=== PATIENT | female | born 1975 | race Caucasian/White ===

== ENCOUNTER → 2016-12-14 | Outpatient (CLI) | payer MEDICARE ==
[2016-12-14 14:32] LABS: INR 1.9 (<1.1); Prothrombin Time 18.6 sec (9.0-12.0)
[2016-12-14 14:41] LABS: CH 34.7; CHCM 30.9; HDW 2.16; HGB 12.2 gm/dL (11.4-16.0); Hypochromasia Slight; MCH 35.1 pg (25.0-35.0); MCHC 31.2 g/dL (31.0-37.0); Macrocytosis Marked; Mean Platelet Volume 7.6; RBC 3.46 m/uL (3.80-5.40); RDW 15.5 % (11.5-15.5); WBC 3.6 k/uL (3.8-10.6); WBC (Perox) 3.74
[2016-12-14 14:43] LABS: ALT 21 U/L (9-52); AST 77 U/L (14-36); Alkaline Phosphatase 191 U/L (38-126); Anion Gap 8 mmol/L; Blood Urea Nitrogen 3 mg/dL (7-17); Calcium 7.8 mg/dL (8.4-10.2); Carbon Dioxide 26 mmol/L (22-30); Chloride 104 mmol/L (98-107); Glucose 89 mg/dL (74-99); MCV 112.6 fL (80.0-100.0); Non-African American GFR(MDRD) >60 (>60 ml/min/1.73 sqM); Sodium 138 mmol/L (137-145); Total Bilirubin 5.2 mg/dL (0.2-1.3); Total Protein 6.7 g/dL (6.3-8.2)
[2016-12-14 15:11] LABS: Add Differential Manual Differential
[2016-12-14 15:33] LABS: Nucleated Red Blood Cells 0 /100 WBC (0-0); Total Cells Counted 100
== END | disposition home or self-care (01) ==
LOC: LABWHC1 13:38
PROVIDERS: ATTEND Internal Medicine Gastroenterology
DX: F10.988 Alcohol use, unspecified with other alcohol-induced disorder (principal)
CPT/HCPCS: 36415; 80053; 85025; 85610

== ENCOUNTER 2017-01-01 13:28 | Inpatient (IN) | payer MEDICARE ==
[2017-01-01] MEDS ORDERED: SODIUM CHLORIDE 0.9% 500 ML IV STA (14:03)
[2017-01-01] MEDS ORDERED: SODIUM CHLORIDE 0.9% 1,000 ML IV STA (14:03)
--- NOTE | 2017-01-01 14:11 | ED ---
General Adult HPI - General Chief complaint: Abdominal Pain Stated complaint: abdominal pain Time Seen by Provider: 01/01/17 13:50 Source: patient, family Mode of arrival: ambulatory - History of Present Illness Initial comments: Chief complaint and history of present illness a 41-year-old female here with liver disease from alcohol abuse. The patient quit smoking and drinking 2 months ago. She's had mild ascites but she feels the last 2 days sitting Jay significantly. She reports a 10 pound weight gain with significant increase in abdominal swelling. - Related Data Home Medications Medication Instructions Recorded Confirmed Furosemide [Lasix] 20 mg PO DAILY 01/01/17 01/01/17 Ibuprofen [Advil] 400 mg PO Q8HR PRN 01/01/17 01/01/17 Pantoprazole Sodium 20 mg PO BID 01/01/17 01/01/17 Spironolactone 50 mg PO DAILY 01/01/17 01/01/17 levETIRAcetam [Keppra] 1,000 mg PO BID 01/01/17 01/01/17 Allergies Allergy/AdvReac Type Severity Reaction Status Date / Time No Known Allergies Allergy Verified 01/01/17 13:58 Review of Systems ROS Statement: Those systems with pertinent positive or pertinent negative responses have been documented in the HPI. Review of systems. No complaint of any headache or visual acuity changes no chest pain or shortness of breath. She states her abdomen feels "bloated. Denying any nausea vomiting, she has had one episode of diarrhea. Patient reports she was taking diuretics which helped significantly decreased the leg swelling but has not altered her abdominal swelling. All systems reviewed. Past medical problems significant for seizure disorder associated with head injury. She's also had acute liver failure. Several days ago she had some chills and fever but none today. Patient did not get a flu shot this year. Patient currently taking Keppra for her seizures with good control. The patient 's past tablets include alcohol use which led to her liver failure. The patient 's surgeries as noted above includes craniotomy. She denies any other surgeries. The patient's family history significant for an uncle with leukemia. His sister of melanoma. Great-grandmother had colon cancer. Patient quit smoking drinking 2 months ago. She denying any ALLERGIES. ROS Other: All systems not noted in ROS Statement are negative. Past Medical History Past Medical History: Seizure Disorder Additional Past Medical History / Comment(s): alcoholic cirrosis, closed head injury History of Any Multi-Drug Resistant Organisms: None Reported Additional Past Surgical History / Comment(s): craniotomy Past Psychological History: No Psychological Hx Reported Smoking Status: Former smoker Past Alcohol Use History: None Reported Past Drug Use History: None Reported General Exam - General Exam Comments Initial Comments: General: The patient is awake and alert, complaining that her abdomen is more swollen than it had been over the last several days. States she's had a 10 pound weight gain over the last several days. Temp 97 7, pulse 122, respiratory rate 18, pulse ox 99% room air blood pressure 102/58. Appears though the patient probably third spacing she will receive some IV fluids. Eye: Pupils are equal, round and reactive to light, extra-ocular movements are intact ; there is normal conjunctiva bilaterally. No signs of icterus. Ears, nose, mouth and throat: There are moist mucous membranes and no oral lesions. always has a reddish rash over her cheeks. Mother reports a slightly more pronounced today. Neck: The neck is supple, there is no tenderness. Cardiovascular: Tachycardic heart rate, 122. No murmur, rub or gallop is appreciated. Respiratory: Lungs are clear to auscultation, respirations are non-labored, breath sounds are equal. No wheezes, stridor, rales, or rhonchi. Gastrointestinal: Soft, mildly distended, mildly tender with palpation. abdomen without masses or organomegaly noted. There is no rebound or guarding present. No CVA tenderness. Bowel sounds are unremarkable. Positive wave sign. Back: No complaint of back pain. Musculoskeletal: Normal ROM, no tenderness, mild edema peripherally but significantly improved since taking diuretics.. There is no calf tenderness . Sensation intact. Pulses equal bilaterally 2+. Neurological: No neuro deficits complained of no noted. Skin: No significant bruising noted. Course Vital Signs 01/01/17 01/01/17 13:35 15:53 Temperature 97.7 F Pulse Rate 122 H 102 H Respiratory 18 20 Rate Blood Pressure 102/58 98/63 O2 Sat by Pulse 99 99 Oximetry Medical Decision Making - Medical Decision Making Medical decision making white count is 5.7 hemoglobin 12 hematocrit 39, potassium 4.0 with a BUN 4 creatinine 0.5 and GFR greater than 60. Patient's total bilirubin elevated 3.8 AST is 52. Amylase and lipase within normal limits. Patient's PT is elevated at 24.7 INR 2.6 and PTT 32.8. Platelets 107. X-ray of the abdomen was done and reviewed by radiologist his findings are the following. There is some possibility of bowel gas. Visualized gases noted in nondistended bowel small and large bowel loops. All G no flanks is consistent with underlying ascites. There are small bilateral pleural effusions. There is associated compressive atelectasis. There is mild joint space loss in both hips. No pneumoperitoneum is present. Spleen is suspected enlarged. Impression; overall a nonspecific suspect nonobstructive bowel gas pattern. Ascites and small bilateral pleural effusions noted. As read by Dr. yeh The case discussed Dr. Cooper, on-call food assembler kitchen. He recommends admission to the hospitalist with further workup and evaluation for possible CT or ultrasound-guided paracentesis by radiologist, interventional list. - Lab Data Result diagrams: 01/01/17 14:16 01/01/17 14:16 Lab Results 01/01/17 01/01/17 01/01/17 Range/Units 14:16 14:16 14:16 WBC 5.7 (3.8-10.6) k/uL RBC 3.63 L (3.80-5.40) m/uL Hgb 12.7 (11.4-16.0) gm/dL Hct 39.1 (34.0-46.0) % MCV 107.7 H D (80.0-100.0) fL MCH 34.9 (25.0-35.0) pg MCHC 32.4 (31.0-37.0) g/dL RDW 14.3 (11.5-15.5) % Plt Count 107 L (150-450) k/uL Neutrophils % 79 % Lymphocytes % 14 % Monocytes % 5 % Eosinophils % 0 % Basophils % 0 % Neutrophils # 4.6 (1.3-7.7) k/uL Lymphocytes # 0.8 L (1.0-4.8) k/uL Monocytes # 0.3 (0-1.0) k/uL Eosinophils # 0.0 (0-0.7) k/uL Basophils # 0.0 (0-0.2) k/uL Manual Slide Review Performed Toxic Granulation Present Macrocytosis Moderate PT 24.7 H (9.0-12.0) sec INR 2.6 (<1.1) APTT 32.8 H (22.0-30.0) sec Sodium 136 L (137-145) mmol/L Potassium 4.0 (3.5-5.1) mmol/L Chloride 107 (98-107) mmol/L Carbon Dioxide 21 L (22-30) mmol/L Anion Gap 8 mmol/L BUN 4 L (7-17) mg/dL Creatinine 0.50 L (0.52-1.04) mg/dL Est GFR (MDRD) Af Amer >60 (>60 ml/min/1.73 sqM) Est GFR (MDRD) Non-Af >60 (>60 ml/min/1.73 sqM) Glucose 76 (74-99) mg/dL Calcium 7.8 L (8.4-10.2) mg/dL Total Bilirubin 3.8 H (0.2-1.3) mg/dL AST 52 H (14-36) U/L ALT 26 (9-52) U/L Alkaline Phosphatase 113 (38-126) U/L Total Protein 6.6 (6.3-8.2) g/dL Albumin 2.1 L (3.5-5.0) g/dL Amylase <30 L (30-110) U/L Lipase 21 L (23-300) U/L Disposition Clinical Impression: Alcoholic cirrhosis of liver with ascites Disposition: ADMITTED IP TO THIS [facility] Condition: Stable
[2017-01-01 14:41] LABS: Amylase <30 U/L (30-110); Anion Gap 8 mmol/L; Calcium 7.8 mg/dL (8.4-10.2); Carbon Dioxide 21 mmol/L (22-30); Chloride 107 mmol/L (98-107); Glucose 76 mg/dL (74-99); Non-African American GFR(MDRD) >60 (>60 ml/min/1.73 sqM); Sodium 136 mmol/L (137-145); Total Bilirubin 3.8 mg/dL (0.2-1.3)
[2017-01-01 14:45] LABS: ALT 26 U/L (9-52); AST 52 U/L (14-36); Alkaline Phosphatase 113 U/L (38-126); Blood Urea Nitrogen 4 mg/dL (7-17); Total Protein 6.6 g/dL (6.3-8.2)
--- NOTE | 2017-01-01 14:48 | XR ---
EXAMINATION TYPE: XR abdomen 2V DATE OF EXAM: 01/01/2017 2:33 PM CLINICAL HISTORY: Abdominal pain and bloating/ascites TECHNIQUE: Supine and upright views of the abdomen are obtained. COMPARISON: None. FINDINGS: There is some paucity of bowel gas. Visualized gas is noted in nondistended small and larg e bowel loops. Bulging of flanks is consistent with underlying ascites. There are small bilateral ple ural effusions. There is associated compressive atelectasis. There is mild joint space loss in both h ips. No pneumoperitoneum is present. Spleen is suspected enlarged. IMPRESSION: Overall nonspecific suspect nonobstructive bowel gas pattern. Ascites and small bilatera l pleural effusions noted.
[2017-01-01 14:51] LABS: Basophils % (A) 0 %; CH 35.1; CHCM 32.7; Eosinophils % (A) 0 %; HCT 39.1 % (34.0-46.0); HGB 12.7 gm/dL (11.4-16.0); Luc # (Auto) 0.08; Luc % (Auto) 2; Lymphocytes # (A) 0.8 k/uL (1.0-4.8); Lymphocytes % (A) 14 %; MCH 34.9 pg (25.0-35.0); MCHC 32.4 g/dL (31.0-37.0); Macrocytosis Moderate; Mean Platelet Volume 8.5; Monocytes # (A) 0.3 k/uL (0-1.0); Monocytes % (A) 5 %; Neutrophils # (A) 4.6 k/uL (1.3-7.7); Neutrophils % (A) 79 %; RBC 3.63 m/uL (3.80-5.40); RDW 14.3 % (11.5-15.5); WBC 5.7 k/uL (3.8-10.6); WBC (Perox) 6.03
[2017-01-01 14:58] LABS: MCV 107.7 fL (80.0-100.0)
[2017-01-01 15:01] LABS: INR 2.6 (<1.1); Partial Thromboplastin Time 32.8 sec (22.0-30.0); Prothrombin Time 24.7 sec (9.0-12.0)
[2017-01-01 15:20] LABS: Manual Review Performed; Toxic Granulation Present
[2017-01-01] MEDS ORDERED: NALOXONE 0.4 MG/ML 1 ML VIAL IV PRN (16:16)
[2017-01-01] MEDS ORDERED: SODIUM CHLORIDE 0.9% 1,000 ML with MVI, ADULT NO.4 WITH VIT K 10 ML, THIAMINE 100 MG, F... IV ONE ×4 (16:16)
[2017-01-01 18:10] VITALS: BMI 27.1
[2017-01-01] MEDS: levETIRAcetam 500 MG TAB PO SCH (20:06)
[2017-01-01] MEDS: HYDROmorphone 1 MG/ML 1 ML SYRINGE IVP PRN (22:32)
[2017-01-02] MEDS: HYDROmorphone 1 MG/ML 1 ML SYRINGE IVP PRN ×4 (02:30→22:58)
[2017-01-02] MEDS: PANTOPRAZOLE 40 MG/10 ML VIAL IV SCH (08:34)
[2017-01-02] MEDS: levETIRAcetam 500 MG TAB PO SCH ×2 (08:34→20:33)
[2017-01-02] MEDS ORDERED: FUROSEMIDE 20 MG TAB PO SCH (09:00)
[2017-01-02] MEDS ORDERED: SPIRONOLACTONE 25 MG TAB PO SCH (09:00)
[2017-01-02 12:40] LABS: INR 2.3 (<1.1); Prothrombin Time 22.4 sec (9.0-12.0)
[2017-01-02 13:05] LABS: Basophils % (A) 1 %; CH 34.6; CHCM 31.8; Eosinophils % (A) 0 %; HCT 36.8 % (34.0-46.0); HDW 2.16; Luc # (Auto) 0.07; Luc % (Auto) 2; Lymphocytes # (A) 0.5 k/uL (1.0-4.8); Lymphocytes % (A) 12 %; MCH 35.7 pg (25.0-35.0); MCHC 32.6 g/dL (31.0-37.0); MCV 109.2 fL (80.0-100.0); Macrocytosis Marked; Mean Platelet Volume 9.1; Monocytes # (A) 0.4 k/uL (0-1.0); Monocytes % (A) 8 %; Neutrophils # (A) 3.6 k/uL (1.3-7.7); Neutrophils % (A) 78 %; RBC 3.37 m/uL (3.80-5.40); RDW 14.4 % (11.5-15.5); WBC 4.6 k/uL (3.8-10.6); WBC (Perox) 4.61
[2017-01-02 13:17] LABS: Manual Review Performed
[2017-01-02] MEDS: MULTIVITAMINS, THERA 1 EACH TAB PO SCH (13:34)
--- NOTE | 2017-01-02 14:43 | US ---
EXAMINATION TYPE: US abdomen limited DATE OF EXAM: 01/02/2017 12:55 PM COMPARISON: NONE CLINICAL HISTORY: abd distension r/o ascites. TECHNOLOGIST IMPRESSION: Moderate ascites Limited abdomen ultrasound performed. Ascites noted in all 4 quadrants. IMPRESSION: Moderate ascites, limited abdomen ultrasound
[2017-01-02] MEDS: PHYTONADIONE ORAL 5 MG/5 ML ORAL.SYRG PO SCH (14:51)
[2017-01-02] MEDS ORDERED: SPIRONOLACTONE 25 MG TAB PO ONE (16:30)
[2017-01-02] MEDS: traMADol 50 MG TAB PO PRN ×2 (17:41→22:58)
[2017-01-02] MEDS: FUROSEMIDE 40 MG TAB PO SCH (17:42)
--- NOTE | 2017-01-02 20:27 | HP ---
DATE OF ADMISSION: 01/01/2017 DATE OF SERVICE: 01/02/2017 CHIEF COMPLAINTS: Abdominal pain and ascites. HISTORY OF PRESENT ILLNESS: This 41-year-old woman with a past medical history of multiple medical problems, including history of seizure disorder, history of alcoholic cirrhosis, history of closed head injury, history of craniotomy, history of nicotine dependence, being followed by Dr. Newby in the outpatient setting, was not feeling well over the past several days. Patient apparently was found to have hyperbilirubinemia and was evaluated by Dr. Guevara. With almost stoppage of her addiction of alcohol, her bilirubin is coming down; however, the patient is complaining of diffuse abdominal pain and distention and the patient came to [facility] and was admitted for further evaluation and treatment. The patient also reported a 10-pound weight gain. There is no history of any fever, rigor or chills. No history of headache, loss of consciousness, seizures. PAST MEDICAL HISTORY: 1. Seizure disorder. 2. Alcoholic cirrhosis. 3. Closed head injury. 4. Craniotomy. HOME MEDICATIONS: 1. Keppra 1000 mg p.o. b.i.d. 2. Spironolactone 50 mg p.o. daily. 3. Protonix 20 mg p.o. b.i.d. 4. Lasix 20 mg p.o. daily. ALLERGIES: NONE. FAMILY HISTORY: No history of heart disease or strokes in the family. SOCIAL HISTORY: Patient used to be a teacher. No current smoking or alcohol intake. Patient reports alcohol intake about 6 days ago and also smoking previously in the remote past. REVIEW OF SYSTEMS: ENT: No diminished vision. No diminished hearing. CARDIOVASCULAR: No angina, palpitations. RESPIRATORY SYSTEM: No cough, hemoptysis. GI: As mentioned earlier. : No dysuria. NERVOUS SYSTEM: As mentioned earlier. ALLERGY/IMMUNOLOGY: No asthma or hayfever. MUSCULOSKELETAL: As mentioned earlier. HEMATOLOGY/ONCOLOGY: No history of anemia. ENDOCRINE: No history of diabetes, hypothyroidism. CONSTITUTIONAL: As mentioned earlier. DERMATOLOGY: Negative. RHEUMATOLOGY: Negative. PSYCHIATRY: As mentioned earlier. PHYSICAL EXAMINATION: Patient is alert and oriented x3. Pulse 104, blood pressure 101/61, respiration 16, temperature 98.3, pulse ox 99% on room air. HEENT: Conjunctivae normal. Oral mucosa moist. Facial erythema present. NECK: No jugular venous distention. No carotid bruit. No lymph node enlargement. erythema present. CARDIOVASCULAR: S1, S2 muffled. No S3. No S4. No murmur. No thrills. RESPIRATORY SYSTEM: Breath sounds diminished at the bases. A few scattered rhonchi. No crackles. ABDOMEN: Soft. Tense ascites present. Otherwise, umbilicus is also flattened. Shifting dullness and fluid thrill also present. Bowel sounds diminished. No hepatosplenomegaly. LEGS: No edema. No swelling. NERVOUS SYSTEM: Higher functions as mentioned earlier. Moves all 4 limbs. No focal motor or sensory deficit. LYMPHATICS: No lymph node palpable in neck, axillae or groin. SKIN: No ulcer, rash, bleeding. LABS: WBC 5.7. MCV 107.7. Platelets 107. INR is 2.6 and 2.3. Sodium is 136, creatinine 0.5. Total bilirubin 3.8. AST is 52. Ammonia is 66. Lipase is 21. Albumin is 2.1. ASSESSMENT: 1. Abdominal pain and acute ascites secondary to cirrhosis of liver. 2. Change in mental status with early metabolic encephalopathy and hepatic encephalopathy. 3. Thrombocytopenia secondary to cirrhosis of the liver. 4. Increased mean corpuscular volume from alcohol. 5. History of ethanol abuse. 6. Coagulopathy secondary to chronic liver disease, present on admission. 7. Hyponatremia, hypervolemic. 8. Hyperbilirubinemia secondary to alcoholic hepatitis. 9. Increased AST. 10. Hypoalbuminemia with mild to moderate protein-calorie malnutrition. 11. History of seizure disorder. 12. History of closed head injury. 13. History of craniotomy. 14. Remote history of nicotine dependence. 15. FULL CODE. RECOMMENDATIONS AND DISCUSSION: In this 41-year-old woman presented with multiple complex medical issues, as detailed above, at this time I recommend to continue with the current medications, continue with symptomatic treatment. The patient appears to have alcoholic cirrhosis and ascites. I would recommend ultrasound abdomen. Consult with Dr. Guevara. If there is enough fluid, will recommend therapeutic and diagnostic aspirations also. Otherwise, the labs will be continuously followed. Will add administer vitamin K to reverse the coagulopathy. See orders for further details. Prognosis guarded because of multiple complex medical issues. Further recommendations to follow. A copy of this dictation is being forwarded to Dr. Newby, who is the primary physician.
[2017-01-02] MEDS ORDERED: LACTULOSE 20 GM/30 ML CUP PO SCH (21:00)
--- NOTE | 2017-01-02 23:19 | CONS ---
DATE OF CONSULTATION: REASON FOR CONSULTATION: Abdominal pain and abdominal distention and history of acute alcoholic hepatitis. HISTORY OF PRESENT ILLNESS: The patient is a 41-year-old white female with history of heavy alcohol abuse. Last seen in my office about 2 weeks ago. The patient was admitted to a hospital in the [facility] in October of this year with ( ) severe acute alcoholic hepatitis. ( ) raza. She was subsequently brought to this area by her mom who cared for her and I have seen her twice in the last six weeks on the consultation for management of acute alcoholic hepatitis. The patient has been complaining of abdominal pain, abdominal bloating, which has gotten much worse in the last one week. She was started on diuretics on an outpatient basis because of mild ascites and the patient thinks that the abdominal bloating is progressively getting worse and she feels that she gained about 10 pounds in the last one week. The patient is diffuse all over the abdomen. She denies any fever, chills or night sweats. Reports no nausea. She quit drinking about two months ago. PAST MEDICAL HISTORY: Significant for acute alcoholic hepatitis, anxiety, depression. MEDICATIONS AT HOME: 1. Lasix 40 mg daily. 2. Aldactone 30 milligrams daily. 3. Advil. 4. Protonix. 5. Keppra. PAST SURGICAL HISTORY: Craniotomy due to closed head injury many years ago. PAST MEDICAL HISTORY: Seizure disorder, alcoholic acidosis with acute alcoholic hepatitis. SOCIAL HISTORY: Former smoker and a heavy alcohol use, quit drinking 2 months ago. FAMILY HISTORY: Unremarkable. REVIEW OF SYSTEMS: CARDIOPULMONARY: No chest pain or shortness of breath. GENITOURINARY: No dysuria or hematuria. MUSCULOSKELETAL: Chronic back pain. NEUROLOGY: Unremarkable. ENT: Unremarkable. PSYCHIATRIC: History of anxiety and depression. ENDOCRINE: Unremarkable. HEMATOLOGY: Unremarkable. PSYCHIATRIC: Mentioned above. GI: As mentioned above. ENT: Vision unremarkable. On physical examination, she appears comfortable in no apparent distress. Vital signs are stable. Blood pressure is 101/63, pulse rate 99 and temperature 97. HEENT examination unremarkable. Conjunctivae pink. Sclerae anicteric. Oral cavity no lesions. NECK: No jugular venous distention. No lymph node enlargement. CHEST: Clear to auscultation. HEART: Regular rate and rhythm. ABDOMEN: Soft. It was distended and it was bloated. There was some free fluid noted ( ) with some shifting dullness seen. Hepatomegaly noted. EXTREMITIES: No pedal edema. SKIN: No rashes. NEURO: She is alert and oriented times three. No focal deficits. Labs from yesterday: WBC ( ), ( ) platelets 103, T-bili 3.1. INR is 2.3, BUN 4, creatinine 0.5, AST 52, ALT 26, alkaline phosphatase 113, ammonia is 66. Amylase and lipase are normal. IMPRESSION: 1. Acute alcoholic hepatitis diagnosed 2 months ago and she is gradually improving. 2. History of alcoholic cirrhosis of the liver. 3. Heavy alcohol abuse quit about 2 months ago. 4. Abdominal pain, abdominal distention, rule out ascites. 5. The patient was started on outpatient diuretics with Lasix 20 milligrams daily and Aldactone 50 mg daily about a month ago. RECOMMENDATIONS: 1. Ultrasound of the abdomen to evaluate for ascites and if there is a significant amount of ascites we will schedule her for ( ) diagnostic and therapeutic purposes. 2. Low-salt diet. 3. Increase Lasix to 40 mg daily and Aldactone to 100 mg daily. 4. We will follow the patient closely during her hospital stay. Thank you for this consultation.
[2017-01-03 08:08] LABS: ALT 17 U/L (9-52); AST 37 U/L (14-36); Alkaline Phosphatase 114 U/L (38-126); Anion Gap 13 mmol/L; Blood Urea Nitrogen 7 mg/dL (7-17); Calcium 7.5 mg/dL (8.4-10.2); Carbon Dioxide 16 mmol/L (22-30); Chloride 103 mmol/L (98-107); Glucose 72 mg/dL (74-99); Non-African American GFR(MDRD) >60 (>60 ml/min/1.73 sqM); Potassium 3.9 mmol/L (3.5-5.1); Sodium 132 mmol/L (137-145); Total Bilirubin 4.1 mg/dL (0.2-1.3); Total Protein 6.3 g/dL (6.3-8.2)
[2017-01-03 08:27] LABS: Basophils % (A) 0 %; CH 34.1; CHCM 30.8; Eosinophils % (A) 0 %; HCT 40.2 % (34.0-46.0); HDW 2.18; HGB 12.7 gm/dL (11.4-16.0); Hypochromasia Slight; Luc # (Auto) 0.07; Luc % (Auto) 1; Lymphocytes # (A) 0.2 k/uL (1.0-4.8); Lymphocytes % (A) 3 %; MCH 35.2 pg (25.0-35.0); MCHC 31.6 g/dL (31.0-37.0); MCV 111.3 fL (80.0-100.0); Macrocytosis Marked; Mean Platelet Volume 8.5; Monocytes # (A) 0.5 k/uL (0-1.0); Monocytes % (A) 7 %; Neutrophils # (A) 6.9 k/uL (1.3-7.7); Neutrophils % (A) 89 %; RBC 3.61 m/uL (3.80-5.40); RDW 14.4 % (11.5-15.5); WBC 7.8 k/uL (3.8-10.6); WBC (Perox) 7.37
[2017-01-03] MEDS ORDERED: SPIRONOLACTONE 25 MG TAB PO SCH (09:00)
[2017-01-03] MEDS: LACTULOSE 20 GM/30 ML CUP PO SCH ×12 (09:05→23:32)
[2017-01-03] MEDS: levETIRAcetam 500 MG TAB PO SCH (09:06)
[2017-01-03] MEDS: PANTOPRAZOLE 40 MG/10 ML VIAL IV SCH (09:06)
[2017-01-03 09:25] LABS: Manual Review Performed; Target Cells Present; Toxic Granulation Present; Toxic Vacuolation Present
--- NOTE | 2017-01-03 09:50 | P.PN ---
Subjective Principal diagnosis: Acute alcohol hepatitis 41-year-old female with a history of heavy EtOH abuse and underlying alcohol liver cirrhosis admitted with ascites, acute alcohol hepatitis, and elevated ammonia level consistent with acute hepatic encephalopathy. Ammonia level increased to 171 today. Patient is more drowsy but talking and easily awakened. Moderate ascites on ultrasound; paracentesis tentative 24-48 hours. Afebrile. Total bilirubin 4.1. Objective - Vital Signs Vital signs: Vital Signs Temp 96.4 F L 01/03/17 07:33 Pulse 108 H 01/03/17 07:33 Resp 18 01/03/17 07:33 BP 92/70 01/03/17 07:33 Pulse Ox 93 L 01/03/17 07:33 Intake & Output 01/02/17 01/03/17 01/03/17 18:59 06:59 18:59 Intake Total 200 Balance 200 Intake: Oral 200 Other: Voiding Method Toilet Toilet Diaper Incontinent # Voids 2 - Exam General appearance: The patient is easily awakened talking but drowsy. Jaundice. HET: Head is normocephalic and atraumatic. Pupils are equal and reactive. Sclerae icterus. Oropharynx is clear without lesions. Neck: Supple without lymphadenopathy. Trachea midline. Heart: S1 S2. Regular rate and rhythm. Lungs: No crackles or wheezes are heard. Abdomen: Soft, nontender, distended with ascites with bowel sounds. No peritoneal signs. No palpable organomegaly or masses. Extremities: Normal skin color and turgor. No cyanosis, rash, ulceration, clubbing, or edema. Radial and pedal pulses are 2/4 bilaterally. Neurological: No focal deficits. Strength and sensation are grossly intact. - Labs CBC & Chem 7: 01/03/17 07:06 01/03/17 07:06 Labs: Abnormal Lab Results - Last 24 Hours (Table) 01/02/17 01/02/17 01/02/17 Range/Units 12:11 12:16 12:16 RBC 3.37 L (3.80-5.40) m/uL MCV 109.2 H (80.0-100.0) fL MCH 35.7 H (25.0-35.0) pg Plt Count 103 L (150-450) k/uL Lymphocytes # 0.5 L (1.0-4.8) k/uL PT 22.4 H (9.0-12.0) sec Sodium (137-145) mmol/L Carbon Dioxide (22-30) mmol/L Glucose (74-99) mg/dL Calcium (8.4-10.2) mg/dL Total Bilirubin (0.2-1.3) mg/dL AST (14-36) U/L Ammonia 66 H (<30) umol/L Albumin (3.5-5.0) g/dL 01/03/17 01/03/17 01/03/17 Range/Units 07:06 07:06 07:06 RBC 3.61 L (3.80-5.40) m/uL MCV 111.3 H (80.0-100.0) fL MCH 35.2 H (25.0-35.0) pg Plt Count (150-450) k/uL Lymphocytes # 0.2 L (1.0-4.8) k/uL PT (9.0-12.0) sec Sodium 132 L (137-145) mmol/L Carbon Dioxide 16 L (22-30) mmol/L Glucose 72 L (74-99) mg/dL Calcium 7.5 L (8.4-10.2) mg/dL Total Bilirubin 4.1 H (0.2-1.3) mg/dL AST 37 H (14-36) U/L Ammonia 171 H (<30) umol/L Albumin 1.9 L (3.5-5.0) g/dL Assessment and Plan (1) Alcoholic cirrhosis of liver with ascites Status: Acute (2) Acute hepatic encephalopathy Narrative/Plan: Decompensated Status: Acute (3) Coagulopathy Status: Chronic (4) Macrocytosis Status: Chronic (5) ETOH abuse Status: Chronic (6) Jaundice due to hepatitis Status: Acute Plan: 1. Lactulose adjusted to 30 grams QID in addition to 30 gram hourly doses x 2 until patient has bowel movements. Repeat ammonia level at 1800. Continue diuretics. Low-salt diet. Possible paracentesis 24-48 hours; INR will need to be corrected. 2. Will follow with you. Assessment and plan of care discussed with Dr. Guevara.
[2017-01-03] MEDS ORDERED: LACTULOSE 20 GM/30 ML CUP PO ONE ×2 (10:00→11:00)
[2017-01-03] MEDS: ONDANSETRON 4 MG/2 ML VIAL IVP PRN ×2 (10:19→22:20)
[2017-01-03] MEDS: METOCLOPRAMIDE 5 MG/ML 2 ML VIAL IVP STA ×2 (10:19→10:20)
[2017-01-03] MEDS: FUROSEMIDE 40 MG TAB PO SCH (10:23)
[2017-01-03 10:54] LABS: INR 2.3 (<1.1); Prothrombin Time 22.3 sec (9.0-12.0)
[2017-01-03] MEDS: PHYTONADIONE ORAL 5 MG/5 ML ORAL.SYRG PO SCH (10:57)
[2017-01-03] MEDS ORDERED: FUROSEMIDE 10 MG/ML 4 ML VIAL IV SCH (12:00)
[2017-01-03] MEDS: MULTIVITAMINS, THERA 1 EACH TAB PO SCH (12:03)
[2017-01-03] MEDS: HYDROmorphone 1 MG/ML 1 ML SYRINGE IVP PRN ×2 (13:13→22:58)
[2017-01-03 15:08] LABS: Appearance,Urine Cloudy (Clear); Bacteria,Urine Many /hpf; Bilirubin,Urine 1+ (Negative); Glucose,Urine (UA) Negative (Negative); Ketones,Urine Negative (Negative); Leukocyte Esterase,Urine Negative (Negative); Mucus,Urine Rare /hpf; Nitrite,Urine Negative (Negative); Particle Count 19327; Protein,Urine Trace (Negative); RBC,Urine 7 /hpf (0-5); Specific Gravity,Urine 1.014 (1.001-1.035); Squamous Epithelial Cell,Urine 2 /hpf (0-4); UA Billing (MACRO vs. MICRO) MICRO; WBC,Urine 3 /hpf (0-5)
--- NOTE | 2017-01-03 16:12 | PN ---
This 41-year-old woman was admitted with abdominal pain and ascites, was taken. The patient is stuporous at this time. Patient has features of hepatic encephalopathy and ammonia is worsened to 171, yesterday was 66. Otherwise, the patient also had constipated. INR is 2.3. Multiple consultants are following the patient closely. PAST MEDICAL HISTORY: Reviewed. Review of systems could not be taken because of change in mental status. The current medications are reviewed and include: 1. Lasix 40 mg IV daily. 2. Dilaudid 0.5 q.4 p.r.n. 3. Cephulac 30 mg p.o. q.i.d. 4. Keppra 1000 mg p.o. b.i.d. 5. Narcan 0.2 q.2 p.r.n. 6. Protonix 40 mg. 7. Vitamin K. 8. Aldactone. 9. Ultram. PHYSICAL EXAMINATION: The patient is stuporous. Pulse is 108, blood pressure 192/78, respiration 18, temperature is 96.4, pulse ox 92% on room air. HEENT: Conjunctivae normal. Oral mucosa moist. NECK: No jugular venous distention. No carotid bruit. No lymph node enlargement. CARDIOVASCULAR: S1 and S2, muffled. No S3, no S4. RESPIRATORY: Breath sounds diminished at the bases. A few scattered rhonchi, no crackles. ABDOMEN: Soft, nontender. LEGS: No edema, no swelling. NERVOUS SYSTEM: Patient is stuporous. Diffusely weak. SKIN: No rash, ulcer. LABS: WBC 7.8, hemoglobin is 12.7, MCV 111.3. INR is 2.3. Sodium 132, potassium 3.9, glucose 72, total bilirubin is 4.1, AST 37. Ammonia is 171. ASSESSMENT: 1. Abdominal pain and acute ascites secondary to cirrhosis of the liver. 2. Change in mental status with early metabolic encephalopathy and hepatic encephalopathy. 3. Thrombocytopenia secondary to cirrhosis of the liver. 4. Increased MCV from alcohol. 5. History of EtOH abuse. 6. Coagulopathy secondary to chronic liver disease, present on admission. 7. Hyponatremia hypovolemia. 8. Hyperbilirubinemia secondary to alcoholic hepatitis. 9. Increased AST. 10. Hypoalbuminemia with mild to moderate protein calorie malnutrition. 11. History of seizure disorder. 12. History of closed head injury. 13. History of craniotomy. 14. Remote history of nicotine dependence. 15. FULL CODE. RECOMMENDATIONS AND DISCUSSION: In this 41-year-old woman who presented with multiple complex medical issues, will monitor patient closely, continue the current medications. Continue symptomatic treatment. Otherwise, at this time I would recommend lactulose every hour until bowel movement, if necessary using a NG tube. The patient is stuporous and ammonia has gone up. I would also recommend low protein, hepatic diet. Continue to monitor. Prognosis guarded because of multiple complex medical issues. I would also recommend empiric antibiotics as well. Otherwise, the prognosis is guarded because of multiple complex medical issues. Further recommendations to follow. I will obtain the cultures and see orders for further details. Discussed with patient, mother who understands and agrees. JESSICA
[2017-01-03 19:37] LABS: Glucose,Whole Blood 90 mg/dL (75-99)
[2017-01-03 19:40] LABS: Glucose,Whole Blood 71 mg/dL (75-99)
[2017-01-03] MEDS: levETIRAcetam ORAL SOLN 500 MG/5 ML CUP PO SCH (21:08)
[2017-01-03] MEDS ORDERED: DEXTROSE 5% IN WATER 1,000 ML with SODIUM BICARB (1 MEQ/ML) 150 ML IV SCH (21:30)
[2017-01-03 22:48] LABS: Anion Gap 15 mmol/L; Blood Urea Nitrogen 10 mg/dL (7-17); Calcium 7.9 mg/dL (8.4-10.2); Carbon Dioxide 16 mmol/L (22-30); Chloride 104 mmol/L (98-107); Glucose 87 mg/dL (74-99); Magnesium 1.7 mg/dL (1.6-2.3); Non-African American GFR(MDRD) >60 (>60 ml/min/1.73 sqM); Phosphorous 4.8 mg/dL (2.5-4.5); Potassium 3.8 mmol/L (3.5-5.1); Sodium 135 mmol/L (137-145)
[2017-01-03 22:48] LABS: Glucose,Whole Blood 81 mg/dL (75-99)
[2017-01-03] MEDS ORDERED: Magnesium Replacement Protocol 1 EACH MISC MISCELLANE PRN (23:21)
[2017-01-03] MEDS ORDERED: Potassium Replacement Protocol 1 EACH MISC MISCELLANE PRN (23:22)
[2017-01-04] MEDS ORDERED: POTASSIUM CHLORIDE ORAL LIQUID 40 MEQ/30 ML CUP NG-TUBE SCH
[2017-01-04] MEDS ORDERED: IPRATROPIUM-ALBUTEROL 3 ML NEB INHALATION PRN (00:12)
[2017-01-04] MEDS ORDERED: NOREPINEPHRINE 4 MG-0.9% NS PMX 250 ML IV ONE ×2 (00:15→10:55)
[2017-01-04] MEDS ORDERED: PROPOFOL 500 MG in EMPTY BAG 1 BAG IV SCH (00:15)
[2017-01-04] MEDS ORDERED: PROPOFOL 50 ML IV ONE (00:15)
[2017-01-04] MEDS ORDERED: PHENYLEPHRINE-0.9% NACL SYG 1 MG/10 ML SYRINGE ONE (00:21)
[2017-01-04] MEDS ORDERED: PROPOFOL 10 MG/ML 20 ML VIAL IV ONE (00:21)
[2017-01-04] MEDS: MAGNESIUM SULFATE-D5W PMX 1 GM in DEXTROSE/WATER 1 100ML.BAG IVPB SCH ×2 (00:48→01:20)
[2017-01-04] MEDS: LACTULOSE 20 GM/30 ML CUP PO SCH ×12 (00:48→12:56)
--- NOTE | 2017-01-04 01:03 | XR ---
EXAM: XR Chest, 1 View. CLINICAL HISTORY: Reason: decreased sats TECHNIQUE: Frontal view of the chest. COMPARISON: None available FINDINGS: Lungs: Low lung volumes suggesting poor degree of inspiration. Lungs are otherwise clear without focal infiltrates or consolidations. Pleural space: No evidence of pleural effusion or pneumothorax. Heart: Heart size and mediastinal structures are within normal limits. Mediastinum: Unremarkable. Bones/joints: Unremarkable. Tubes, lines and devices: Nasogastric tube is coiled in the stomach. IMPRESSION: Low lung volumes suggesting poor degree of inspiration. No evidence of acute cardiopulmonary disease.
--- NOTE | 2017-01-04 01:12 | XR ---
EXAM: XR Chest, 1 View. CLINICAL HISTORY: Reason: Tube placement TECHNIQUE: Frontal view of the chest. COMPARISON: Portable chest radiograph 01/03/2017 FINDINGS: Lungs: Low lung volumes. No focal infiltrates or consolidations. Pleural space: Unremarkable. No pneumothorax. Heart: Unremarkable. No cardiomegaly. Mediastinum: Unremarkable. Bones/joints: Unremarkable. Tubes, lines and devices: Nasogastric tube is coiled in the stomach. There has been placement of endotracheal tube which has its tip just above level of bruce and tip is near origin of main stem bronchi. Other findings: No other significant interval change as compared to prior examination of 01/03/2017. IMPRESSION: Interval placement of endotracheal tube which has its tip just above level of bruce and near origin of main stem bronchi. Critical Value Communications 01/04/17 01:50 Call Doctor Regarding Other, called ALDO Curry in ICU on 01/04 01:50 (-04:00)
[2017-01-04 01:31] LABS: ABG HCO3 16 mmol/L (21-25); ABG PCO2 29 mmHg (35-45); ABG PH 7.36 (7.35-7.45); ABG PO2 130 mmHg (83-108); ABG TCO2 17 mmol/L (19-24)
[2017-01-04 01:32] LABS: ABG Base Excess -8.4 mmol/L
[2017-01-04] MEDS: PIPERACILLIN-TAZOBACTAM 3.375 GM in DEXTROSE/WATER 1 50ML.BAG IVPB SCH ×2 (02:17→08:27)
[2017-01-04] MEDS: IPRATROPIUM-ALBUTEROL 3 ML NEB INHALATION SCH ×3 (03:50→12:09)
[2017-01-04 04:33] LABS: CH 34.6; CHCM 31.3; HCT 44.4 % (34.0-46.0); HDW 2.27; HGB 13.9 gm/dL (11.4-16.0); Immature Gran Flag Marked; MCH 34.7 pg (25.0-35.0); MCHC 31.3 g/dL (31.0-37.0); MCV 110.9 fL (80.0-100.0); Macrocytosis Marked; Mean Platelet Volume 8.6; RDW 14.6 % (11.5-15.5); WBC (Perox) 13.59
[2017-01-04 04:34] LABS: INR 2.4 (<1.1); Prothrombin Time 23.4 sec (9.0-12.0)
[2017-01-04 04:38] LABS: ALT 25 U/L (9-52); AST 42 U/L (14-36); Alkaline Phosphatase 99 U/L (38-126); Anion Gap 18 mmol/L; Blood Urea Nitrogen 10 mg/dL (7-17); Calcium 7.5 mg/dL (8.4-10.2); Carbon Dioxide 13 mmol/L (22-30); Chloride 104 mmol/L (98-107); Glucose 96 mg/dL (74-99); Magnesium 2.3 mg/dL (1.6-2.3); Non-African American GFR(MDRD) 55 (>60 ml/min/1.73 sqM); Phosphorous 4.9 mg/dL (2.5-4.5); Potassium 3.6 mmol/L (3.5-5.1); Sodium 135 mmol/L (137-145); Total Bilirubin 4.6 mg/dL (0.2-1.3); Total Protein 5.9 g/dL (6.3-8.2)
[2017-01-04 04:59] LABS: ABG Base Excess -10.7 mmol/L; ABG HCO3 14 mmol/L (21-25); ABG Oxygen Saturation 97.7 % (94-97); ABG PCO2 25 mmHg (35-45); ABG PH 7.36 (7.35-7.45); ABG PO2 101 mmHg (83-108); ABG TCO2 15 mmol/L (19-24)
[2017-01-04 05:16] LABS: Add Differential Manual Differential
[2017-01-04 05:20] LABS: Manual Review Performed; Nucleated Red Blood Cells 0 /100 WBC (0-0); Total Cells Counted 200
[2017-01-04 05:21] LABS: Crenated RBC Present; Toxic Granulation Present
[2017-01-04 05:22] LABS: Toxic Vacuolation Present
[2017-01-04] MEDS ORDERED: Potassium Replacement Protocol 1 EACH MISC MISCELLANE PRN (05:58)
[2017-01-04] MEDS: HYDROmorphone 1 MG/ML 1 ML SYRINGE IVP PRN (06:03)
[2017-01-04] MEDS: POTASSIUM CHLORIDE 10 MEQ, LIDOCAINE 2% INJ 10 MG in SODIUM CHLORIDE 0.9% 100 ML IV SCH ×2 (06:21→08:26)
--- NOTE | 2017-01-04 07:25 | XR ---
EXAMINATION TYPE: XR chest 1V portable DATE OF EXAM: 01/04/2017 6:32 AM COMPARISON: 01/04/2017 HISTORY: Tube placement TECHNIQUE: Single frontal view of the chest is obtained. FINDINGS: ET and NG tube stable. Bilateral areas of infiltrate and tiny effusion suspected. No pneum othorax. IMPRESSION: Bilateral infiltrate stable.
[2017-01-04] MEDS ORDERED: LACTULOSE 200 GM/300 ML (FROM 1/2 GAL JUG) RECTAL ONE (08:23)
[2017-01-04] MEDS ORDERED: CHLORHEXIDINE GLUCONATE 15 ML CUP MUCOUS MEM SCH (09:00)
[2017-01-04] MEDS ORDERED: FUROSEMIDE 10 MG/ML 4 ML VIAL IV SCH (09:00)
[2017-01-04] MEDS ORDERED: RIFAXIMIN 550 MG TABLET NG-TUBE SCH (09:30)
[2017-01-04] MEDS ORDERED: IV VANCOMYCIN PER PHARMACY 1 EACH MISC MISCELLANE PRN (10:43)
--- NOTE | 2017-01-04 10:49 | P.PN ---
Subjective Principal diagnosis: Acute alcohol hepatitis 41-year-old female with a history of heavy EtOH abuse and underlying alcohol liver cirrhosis admitted with ascites, acute alcohol hepatitis, and elevated ammonia level consistent with acute hepatic encephalopathy. Ammonia level increased to yesterday and became more agitated. Despite several doses of lactulose via NG tube patient's ammonia level did not improve. She was transferred to the ICU last night and subsequently intubated sedated. Ammonia level this morning 295. INR 2.4. White count 13. BUN 10. Creatinine 1.1. Lactic acid increased 11.2. Bicarbonate infusion. Low urine output over the last few hours. Afebrile. Elevated heart rate 120s. No bowel movements. Objective - Vital Signs Vital signs: Vital Signs Temp 97.6 F 01/04/17 04:00 Pulse 128 H 01/04/17 09:02 Resp 30 H 01/04/17 07:00 BP 102/70 01/04/17 07:00 Pulse Ox 96 01/04/17 07:00 Intake & Output 01/03/17 01/04/17 01/04/17 18:59 06:59 18:59 Intake Total 1392.1 352.5 Output Total 150 335 27 Balance -150 1057.1 325.5 Weight 71.2 kg Intake: Intake, IV Titration 612.1 292.5 Amount Dextrose 5% in Water 1, 360 80 000 ml @ 40 mls/hr IV . Q24H SELVIN with Sodium Bicarb (1 Meq/ml) 150 ml Rx#:[id number] Magnesium Sulfate-D5w Pmx 200 1 gm In Dextrose/Water 1 100ml.bag @ 100 mls/hr IVPB Q1H SELVIN Rx#: [id number] Piperacillin-Tazobactam 3 50 12.5 .375 gm In Dextrose/Water 1 50ml.bag @ 12.5 mls/hr IVPB Q8HR SELVIN Rx#: [id number] Potassium Chloride 10 meq 200 Lidocaine 2% Inj 10 mg In Sodium Chloride 0.9% 100 ml @ 100 mls/hr IV Q1HR SELVIN Rx#:[id number] Propofol 500 mg In Empty 2.1 Bag 1 bag @ Titrate IV . Q0M SELVIN Rx#:[id number] Oral 780 60 Output: Urine 150 335 27 Stool 0 Other: Voiding Method Diaper Indwelling Catheter Incontinent # Voids 0 0 - Exam General appearance: Intubated. Sedated. Jaundice. HET: Head is normocephalic and atraumatic. Pupils are equal and reactive. Sclerae icterus. Oropharynx is clear without lesions. Nasal gastric tube clamped. Neck: Supple without lymphadenopathy. Trachea midline. Endotracheal tube intact. Heart: S1 S2. Regular rate and rhythm. Lungs: No crackles or wheezes are heard. Diminished in bases bilaterally. Abdomen: Distended with tense ascites with hypoactive bowel sounds. Extremities: Normal skin color and turgor. No cyanosis, rash, ulceration, clubbing, or edema. Radial and pedal pulses are 2/4 bilaterally. Woodward with scant mio urine. Neurological: Intubated sedated. - Labs CBC & Chem 7: 01/04/17 04:13 01/04/17 04:13 Labs: Abnormal Lab Results - Last 24 Hours (Table) 01/03/17 01/03/17 01/03/17 Range/Units 10:35 14:05 17:48 WBC (3.8-10.6) k/uL MCV (80.0-100.0) fL Neutrophils # (Manual) (1.3-7.7) k/uL PT 22.3 H (9.0-12.0) sec ABG pCO2 (35-45) mmHg ABG pO2 (83-108) mmHg ABG HCO3 (21-25) mmol/L ABG Total CO2 (19-24) mmol/L ABG O2 Saturation (94-97) % Sodium (137-145) mmol/L Carbon Dioxide (22-30) mmol/L Creatinine (0.52-1.04) mg/dL POC Glucose (mg/dL) (75-99) mg/dL Plasma Lactic Acid Steve (0.7-2.0) mmol/L Calcium (8.4-10.2) mg/dL Phosphorus (2.5-4.5) mg/dL Total Bilirubin (0.2-1.3) mg/dL AST (14-36) U/L Ammonia 247 H (<30) umol/L Total Protein (6.3-8.2) g/dL Albumin (3.5-5.0) g/dL Urine Appearance Cloudy H (Clear) Urine Protein Trace H (Negative) Urine Bilirubin 1+ H (Negative) Urine RBC 7 H (0-5) /hpf Urine Bacteria Many H (None) /hpf Hyaline Casts 72 H (0-2) /lpf Urine Mucus Rare H (None) /hpf 01/03/17 01/03/17 01/04/17 Range/Units 19:38 22:16 01:23 WBC (3.8-10.6) k/uL MCV (80.0-100.0) fL Neutrophils # (Manual) (1.3-7.7) k/uL PT (9.0-12.0) sec ABG pCO2 29 L (35-45) mmHg ABG pO2 130 H (83-108) mmHg ABG HCO3 16 L (21-25) mmol/L ABG Total CO2 17 L (19-24) mmol/L ABG O2 Saturation 99.0 H (94-97) % Sodium 135 L (137-145) mmol/L Carbon Dioxide 16 L (22-30) mmol/L Creatinine (0.52-1.04) mg/dL POC Glucose (mg/dL) 71 L (75-99) mg/dL Plasma Lactic Acid Steve (0.7-2.0) mmol/L Calcium 7.9 L (8.4-10.2) mg/dL Phosphorus 4.8 H (2.5-4.5) mg/dL Total Bilirubin (0.2-1.3) mg/dL AST (14-36) U/L Ammonia (<30) umol/L Total Protein (6.3-8.2) g/dL Albumin (3.5-5.0) g/dL Urine Appearance (Clear) Urine Protein (Negative) Urine Bilirubin (Negative) Urine RBC (0-5) /hpf Urine Bacteria (None) /hpf Hyaline Casts (0-2) /lpf Urine Mucus (None) /hpf 01/04/17 01/04/17 01/04/17 Range/Units 04:13 04:13 04:13 WBC 13.0 H (3.8-10.6) k/uL MCV 110.9 H (80.0-100.0) fL Neutrophils # (Manual) 9.0 H (1.3-7.7) k/uL PT 23.4 H (9.0-12.0) sec ABG pCO2 (35-45) mmHg ABG pO2 (83-108) mmHg ABG HCO3 (21-25) mmol/L ABG Total CO2 (19-24) mmol/L ABG O2 Saturation (94-97) % Sodium 135 L (137-145) mmol/L Carbon Dioxide 13 L (22-30) mmol/L Creatinine 1.10 H (0.52-1.04) mg/dL POC Glucose (mg/dL) (75-99) mg/dL Plasma Lactic Acid Steve (0.7-2.0) mmol/L Calcium 7.5 L (8.4-10.2) mg/dL Phosphorus 4.9 H (2.5-4.5) mg/dL Total Bilirubin 4.6 H (0.2-1.3) mg/dL AST 42 H (14-36) U/L Ammonia (<30) umol/L Total Protein 5.9 L (6.3-8.2) g/dL Albumin 1.9 L (3.5-5.0) g/dL Urine Appearance (Clear) Urine Protein (Negative) Urine Bilirubin (Negative) Urine RBC (0-5) /hpf Urine Bacteria (None) /hpf Hyaline Casts (0-2) /lpf Urine Mucus (None) /hpf 01/04/17 01/04/17 01/04/17 Range/Units 04:13 04:50 08:01 WBC (3.8-10.6) k/uL MCV (80.0-100.0) fL Neutrophils # (Manual) (1.3-7.7) k/uL PT (9.0-12.0) sec ABG pCO2 25 L (35-45) mmHg ABG pO2 (83-108) mmHg ABG HCO3 14 L (21-25) mmol/L ABG Total CO2 15 L (19-24) mmol/L ABG O2 Saturation 97.7 H (94-97) % Sodium (137-145) mmol/L Carbon Dioxide (22-30) mmol/L Creatinine (0.52-1.04) mg/dL POC Glucose (mg/dL) (75-99) mg/dL Plasma Lactic Acid Steve 8.2 H* 11.2 H* (0.7-2.0) mmol/L Calcium (8.4-10.2) mg/dL Phosphorus (2.5-4.5) mg/dL Total Bilirubin (0.2-1.3) mg/dL AST (14-36) U/L Ammonia 295 H (<30) umol/L Total Protein (6.3-8.2) g/dL Albumin (3.5-5.0) g/dL Urine Appearance (Clear) Urine Protein (Negative) Urine Bilirubin (Negative) Urine RBC (0-5) /hpf Urine Bacteria (None) /hpf Hyaline Casts (0-2) /lpf Urine Mucus (None) /hpf Microbiology - Last 24 Hours (Table) 01/03/17 14:05 Urine Culture - Preliminary Urine,Catheterized Assessment and Plan (1) Alcoholic cirrhosis of liver with ascites Status: Acute (2) Coagulopathy Status: Chronic (3) Macrocytosis Status: Chronic (4) ETOH abuse Status: Chronic (5) Jaundice due to hepatitis Status: Acute (6) Hepatic coma/encephalopathy Status: Acute (7) Ventilator dependent Status: Acute (8) Respiratory failure requiring intubation Narrative/Plan: Secondary to hepatic coma, protection of airway Status: Acute (9) Elevated lactic acid level Status: Acute (10) Bilateral pulmonary infiltrates on chest x-ray Status: Acute Plan: 1. Prognosis is very guarded. Lactulose enema and start Xifaxan 550 mg twice daily via NG tube. Supportive measures. 2. Recommend transfer to tertiary care center for further evaluation and care this request was communicated to Dr. Pineda's [employer] Nicho Cummins. Assessment and plan of care discussed with Dr. Guevara.
[2017-01-04] MEDS ORDERED: ALBUMIN HUMAN 5% 250 ML IVPB ONE ×3 (10:57→12:51)
[2017-01-04] MEDS ORDERED: VANCOMYCIN 1,250 MG in SODIUM CHLORIDE 0.9% 250 ML IVPB ONE (11:00)
[2017-01-04] MEDS ORDERED: NOREPINEPHRINE 16 MG in SODIUM CHLORIDE 0.9% 250 ML IV SCH (11:30)
[2017-01-04 12:14] LABS: ABG PCO2 21 mmHg (35-45); ABG PH 7.31 (7.35-7.45)
[2017-01-04 12:15] LABS: ABG Base Excess -14.6 mmol/L; ABG HCO3 11 mmol/L (21-25); ABG PO2 144 mmHg (83-108); ABG TCO2 11 mmol/L (19-24)
[2017-01-04 12:26] VITALS: BP 95/49; RESP 24; TEMP 98.4
--- NOTE | 2017-01-04 12:33 | DS ---
DATE OF ADMISSION: 01/01/2017 DATE OF DISCHARGE: FINAL DIAGNOSES: 1. Acute hepatic encephalopathy with severe sepsis and septic shock and hypotension with acute respiratory failure on mechanical ventilation with change in mental status, metabolic encephalopathy. 2. Abdominal pain and ascites secondary to possible cirrhosis of the liver secondary to alcohol. 3. Thrombocytopenia secondary to cirrhosis of the liver. 4. Increased MCV from alcohol. 5. Ethyl alcohol abuse. 6. Coagulopathy secondary to chronic liver disease, present on admission. 7. Hyponatremia hypovolemia. 8. Hyperbilirubinemia secondary to alcoholic hepatitis. 9. Increased AST. 10. Hypoalbuminemia, mild to moderate protein calorie malnutrition. 11. History of seizure disorder. 12. History of closed head injury. 13. History of craniotomy. 14. Remote history of nicotine dependence. 15. FULL CODE. DISCHARGE DISPOSITION: Patient will be transferred to [facility] in a stable condition with guarded prognosis per recommendation by Gastroenterology and Dr. Vallejo. Total time taken is 35 minutes. HISTORY OF PRESENT ILLNESS: This 41-year-old woman with a past medical history of multiple medical problems was admitted with abdominal pain and ascites. Patient was treated conservatively, subsequently patient took a turn for the worse. Patient became comatose and also developed features of sepsis, hypotension and respiratory failure. Patient was monitored in the ICU, mechanically ventilated. Dr. Vallejo recommended the patient be transferred. The patient also had multiple other complex medical issues as listed above. Currently, the vitals show blood pressure 102/49, the patient is on 40 mcg of Levophed, sating at 100% and 75% on vent. Lactic acid is 11.2. Cultures are pending. Patient is also on IV fluid D5 with 3 amps of bicarb. Please refer to the med sheet for detailed medications. The patient will be discharged as mentioned in a stable condition with guarded prognosis to [facility] ICU. The patient followed with Dr. Newby in the outpatient setting. Final cultures are pending is on broad-spectrum IV antibiotics. The current medications are: 1. Chlorhexidine. 2. Hydromorphone 0.5 q.4 p.r.n. 3. Albuterol Atrovent q.i.d. and p.r.n. 4. Lactulose 30 gm q.1h through NG tube. 5. Magnesium replacement protocol. 6. Multivitamin 1 per PEG daily. 8. IV fluids as mentioned earlier. 9. Levophed drip. 10. Protonix 40 mg IV daily. 11. Vitamin K 10 mg per NG-tube daily. 12. Zosyn 3.375 IV q.8. 13. Potassium per protocol. 14. Xifaxan 550 mg tube feeds. 15. Aldactone 100 mg daily. 16. Vancomycin given one dose and 1.25 gm q.16 hours. 17. Keppra 1000 mg p.o. b.i.d. 18. Ultram 50 mg q.i.d. p.r.n. Once again, the patient will be discharged in a stable condition with guarded prognosis. MTDD
[2017-01-04 12:39] LABS: INR 3.4 (<1.1); Prothrombin Time 33.2 sec (9.0-12.0)
[2017-01-04 12:40] LABS: Potassium 3.6 mmol/L (3.5-5.1); Total Protein 5.2 g/dL (6.3-8.2)
[2017-01-04 12:41] LABS: CH 34.1; CHCM 30.8; HCT 36.1 % (34.0-46.0); HDW 2.25; HGB 11.2 gm/dL (11.4-16.0); Hypochromasia Slight; Immature Gran Flag Marked; MCH 34.6 pg (25.0-35.0); MCHC 31.2 g/dL (31.0-37.0); MCV 111.1 fL (80.0-100.0); Macrocytosis Marked; Mean Platelet Volume 8.3; RBC 3.25 m/uL (3.80-5.40); RDW 14.7 % (11.5-15.5); WBC 14.7 k/uL (3.8-10.6); WBC (Perox) 16.08
[2017-01-04] MEDS: levETIRAcetam ORAL SOLN 500 MG/5 ML CUP PO SCH (12:56)
[2017-01-04] MEDS: PANTOPRAZOLE 40 MG/10 ML VIAL IV SCH (12:57)
[2017-01-04] MEDS: MULTIVITAMINS, THERA 1 EACH TAB PO SCH (12:57)
[2017-01-04] MEDS ORDERED: DEXTROSE 50%-WATER 50 ML SYRINGE IVP ONE (13:00)
[2017-01-04 13:09] LABS: Add Differential Manual Differential
[2017-01-04 13:11] LABS: Glucose,Whole Blood 32 mg/dL (75-99)
[2017-01-04 13:14] LABS: Band Neutrophils % 2.5 %; Manual Review Performed; Myelocytes % 0.5 %; Nucleated Red Blood Cells 0 /100 WBC (0-0); Total Cells Counted 200; Toxic Granulation Present; Toxic Vacuolation Present
[2017-01-04 13:27] VITALS: PULSE 111
[2017-01-04 13:27] LABS: Glucose,Whole Blood 88 mg/dL (75-99)
[2017-01-04 14:46] LABS: RBC, Body Fluid 7800 /uL
--- NOTE | 2017-01-04 15:10 | P.CNPUL ---
History of Present Illness Consult date: 01/04/17 Chief complaint: Liver cirrhosis, shock History of present illness: 41-year-old female patient with known history of alcoholic liver cirrhosis of the transferred to the hospital because of abdominal pain and distention. The patient apparently quit drinking alcohol recently. She was being worked up and treated by Dr. Yung on outpatient basis regarding that alcoholic liver cirrhosis. Upon admission, the patient was found to have moderate degree of ascites and abdominal distention and bloating and she reported progressive worsening of abdominal girth as the patient had gained approximately 10 pounds over the past 1 week. The patient also had some vague diffuse abdominal pain. No nausea or vomiting. No fever chills or night sweats. No chest pain. No cough or sputum production. She progressively became more encephalopathic. Ammonia levels were quite elevated and the patient the chest to the intensive care unit. NG tube was inserted and the patient was started on lactulose to facilitate her bowel movements in 3 to hepatitic encephalopathy. She apparently vomited and there is a questionable reported aspiration and subsequently the patient became more hypoxic and she was initially placed on a 50% Ventimask. She was noted to be progressively more acidotic and she was having increased lactic acid levels and progressively went into a shock state. Overnight the patient was intubated and placed on a mechanical ventilator. She was started on broad-spectrum antibiotics and she was given IV Zosyn. Early this morning, the patient was seen and evaluated in the intensive care unit. The patient was encephalopathic and she was in hepatic encephalopathy with high ammonia levels. As such, the patient was not responsive to any verbal stimulation. No agitation. No restlessness. She was on a mechanical ventilator. The patient was intubated on a mechanical ventilator. I changed her vent setting knowing that the patient had an increased minute ventilation of output on an assist-control at the rate of 24, increase the tidal volume to 600, Dr. FiO2 down to 75% and she was in a PEEP of 5. I reviewed her chest x- ray the patient had small lung volumes atelectatic changes and possibly some infiltrates in the lung bases. ET tube was in a good location. Her blood gases from this morning showed a pH of 7.36, with a pCO2 of 25 and a pO2 of 101. I performed a bedside paracentesis on this patient with I removed 2 L of ascitic fluid and send it for analysis with a concern of her having spotting aspect. Peritonitis. The patient was given IV albumin as replacement and she received 12.5 mg of albumin 3 as the patient was becoming progressively more hypotensive along with a shock state. Note that her urine output dropped and since morning showed a producing any significant urine output. Triple-lumen catheter was inserted. Arterial catheter was inserted. The patient was started on pressors and at this point in time the levo fed dose is running at 30 mics per KG pigmented. Urine output remains essentially minimal only a few cc's over the past few hours. She developed severe lactic acidosis and lactic acid level was high as 11. The patient was resuscitated IV fluids. The patient was receiving a combination of normal saline and a bicarb drip with a total infusion rate of 150 mL an hour. At the later stage, the fluids was switched to D5 with 3 A of bicarbonate rate of 1 50 mL an hour specially the patient was having episodes of hypoglycemia that was noted later on during the day. I did make recommendations for this patient to be transferred to [facility] due to her young age and complexity and advanced liver disease. Review of Systems ROS unobtainable: due to endotracheal tube Past Medical History Past Medical History: Seizure Disorder Additional Past Medical History / Comment(s): alcoholic cirrosis, closed head injury, alcoholism, previous history of hepatic encephalopathy, previous history of coagulopathy related to her alcoholic liver disease History of Any Multi-Drug Resistant Organisms: None Reported Additional Past Surgical History / Comment(s): craniotomy Past Psychological History: No Psychological Hx Reported Smoking Status: Former smoker Past Alcohol Use History: None Reported Past Drug Use History: None Reported - Past Family History Father Family Medical History: Myocardial Infarction ([place]) Medications and Allergies Home Medications Medication Instructions Recorded Confirmed Type Furosemide [Lasix] 20 mg PO DAILY 01/01/17 01/01/17 History Pantoprazole Sodium 20 mg PO BID 01/01/17 01/01/17 History Spironolactone 50 mg PO DAILY 01/01/17 01/01/17 History levETIRAcetam [Keppra] 1,000 mg PO BID 01/01/17 01/01/17 History Allergies Allergy/AdvReac Type Severity Reaction Status Date / Time No Known Allergies Allergy Verified 01/01/17 13:58 Physical Exam Vitals: Vital Signs Temp Pulse Pulse Resp BP BP Pulse Ox 01/04/17 13:15 111 H 24 100 03/15/17 13:00 118 H 25 H 100 01/04/17 12:45 108 H 24 95/49 100 01/04/17 12:30 109 H 23 95/49 100 01/04/17 12:20 110 H 01/04/17 12:09 108 H 01/04/17 12:00 98.4 F 108 H 24 95/49 100 01/04/17 11:30 118 H 23 91/51 100 01/04/17 11:00 126 H 24 71/46 92 L 01/04/17 10:30 141 H 32 H 111/55 91 L 01/04/17 10:00 139 H 25 H 43/11 92 L 01/04/17 09:30 136 H 44 H 112/88 93 L 01/04/17 09:02 128 H 01/04/17 09:00 127 H 22 95 01/04/17 08:36 126 H 01/04/17 08:30 128 H 28 H 116/57 94 L 01/04/17 08:00 98.2 F 128 H 22 92/50 95 01/04/17 07:00 122 H 30 H 102/70 96 01/04/17 06:30 134 H 41 H 106/78 93 L 01/04/17 06:00 124 H 22 118/82 95 01/04/17 05:30 121 H 18 112/80 95 01/04/17 05:00 128 H 28 H 100/68 93 L 01/04/17 04:30 117 H 20 106/79 95 01/04/17 04:08 115 H 01/04/17 04:00 97.6 F 114 H 117 H 16 106/80 96 01/04/17 03:50 116 H 01/04/17 03:30 113 H 20 101/83 96 01/04/17 03:00 113 H 22 94/67 96 01/04/17 02:30 114 H 18 121/81 95 01/04/17 02:00 116 H 18 117/79 95 01/04/17 01:30 121 H 24 105/60 98 01/04/17 01:00 113 H 21 109/58 98 01/04/17 00:30 117 H 34 H 118/64 91 L 01/04/17 00:17 97.6 F 117 H 20 117/79 95 01/04/17 00:00 97.6 F 115 H 120 H 16 117/83 86 L 01/03/17 23:31 114 H 13 122/86 89 L 01/03/17 23:30 113 H 13 122/86 90 L 01/03/17 23:00 114 H 13 126/76 92 L 01/03/17 22:30 121 H 14 126/76 92 L 01/03/17 22:00 120 H 19 131/81 93 L 01/03/17 21:44 120 H 14 01/03/17 21:30 117 H 14 126/83 94 L 01/03/17 21:00 118 H 13 116/78 95 01/03/17 20:30 122 H 11 L 119/81 95 01/03/17 20:00 97.6 F 119 H 11 L 109/93 93 L 01/03/17 19:37 94 L 01/03/17 15:30 98.4 F 122 H 18 106/70 94 L Intake and Output 01/03/17 01/04/17 01/04/17 22:59 06:59 14:59 Intake Total 100 1292.1 1650.0 Output Total 65 270 32 Balance 35 1022.1 1618.0 Intake: Intake, IV Titration 40 572.1 1530.0 Amount Albumin Human 5% 250 ml 750 As IVPB .[facility] Rx#: [id number] Dextrose 5% in Water 1, 40 320 280 000 ml @ 150 mls/hr IV . Q7H40M SELVIN with Sodium Bicarb (1 Meq/ml) 150 ml Rx#:[id number] Magnesium Sulfate-D5w Pmx 200 1 gm In Dextrose/Water 1 100ml.bag @ 100 mls/hr IVPB Q1H [facility] Rx#: [id number] Piperacillin-Tazobactam 3 50 50.0 .375 gm In Dextrose/Water 1 50ml.bag @ 12.5 mls/hr IVPB Q8HR [facility] Rx#: [id number] Potassium Chloride 10 meq 200 Lidocaine 2% Inj 10 mg In Sodium Chloride 0.9% 100 ml @ 100 mls/hr IV Q1HR [facility] Rx#:[id number] Propofol 500 mg In Empty 2.1 Bag 1 bag @ Titrate IV . Q0M [facility] Rx#:[id number] Vancomycin 1,250 mg In 250 Sodium Chloride 0.9% 250 ml @ 125 mls/hr IVPB Q16H [facility] Rx#:[id number] Oral 60 720 120 Output: Urine 65 270 32 Stool 0 Other: Voiding Method Indwelling Catheter Indwelling Catheter Indwelling Catheter # Voids 0 0 Weight 71.2 kg 67.8 kg Patient Weight 01/05/17 06:59 Weight 67.8 kg ABP, PAP, CO, CI - Last 8 Hours Arterial Blood Pressure 95/33 Arterial Blood Pressure 119/49 Arterial Blood Pressure 109/39 Arterial Blood Pressure 108/39 Arterial Blood Pressure 120/50 Patient is intubated on a mechanical ventilator. The patient is cachectic thin frail looking. She is malnourished. She is pale and somewhat jaundiced in addition.She has an orogastric and orotracheal tube in place. Head is atraumatic normocephalic. Neck is supple and there is no JVDs no goiter or neck masses. Lungs sounds are diminished in lung bases bilaterally otherwise vessels are equal and symmetrical and there is no wheezes or rhonchi.Cardiac exam revealed the PMI to be normally situated and sized. The rhythm was regular and no extrasystoles were noted during several minutes of auscultation. The first and second heart sounds were normal and physiologic splitting of the second heart sound was noted. There were no murmurs, rubs, clicks, or gallops. Abdomen is distended and there is a positive fluid wave and shifting dullness. No direct tenderness. No rebound tenderness. No guarding. Bowel sounds are hypoactive. Extremities are atrophic and edematous and there is significant diminishment in pulses in lower extremities bilaterally and diminished pulses in her upper extremities bilaterally. The patient has no cyanosis. The patient has no clubbing. She is in a shock state with significant vasoconstriction peripherally and cold extremities more so on the feet. Neurologically, she is unresponsive and she is currently under hepatitic encephalopathy. She did withdraw to deep painful stimuli only. Pupils were 3- 4 mm in size and there equal and symmetrical and sluggishly reactive to light. Results - Laboratory Findings CBC and BMP: 01/04/17 11:59 01/04/17 11:50 ABG ABG pH 7.31 (7.35-7.45) L 01/04/17 11:50 ABG pCO2 21 mmHg (35-45) L 01/04/17 11:50 ABG pO2 144 mmHg (83-108) H 01/04/17 11:50 ABG O2 Saturation 99.0 % (94-97) H 01/04/17 11:50 PT/INR, D-dimer PT 33.2 sec (9.0-12.0) H 01/04/17 11:59 INR 3.4 (<1.1) 01/04/17 11:59 Abnormal lab findings: Abnormal Labs 01/02/17 01/02/17 01/02/17 12:11 12:16 12:16 WBC RBC 3.37 L Hgb MCV 109.2 H MCH 35.7 H Plt Count 103 L Neutrophils # (Manual) Lymphocytes # 0.5 L Monocytes # (Manual) PT 22.4 H ABG pH ABG pCO2 ABG pO2 ABG HCO3 ABG Total CO2 ABG O2 Saturation Sodium Carbon Dioxide Creatinine Glucose POC Glucose (mg/dL) Plasma Lactic Acid Steve Calcium Phosphorus Total Bilirubin AST Ammonia 66 H Total Protein Albumin Urine Appearance Urine Protein Urine Bilirubin Urine RBC Urine Bacteria Hyaline Casts Urine Mucus 01/03/17 01/03/17 01/03/17 07:06 07:06 07:06 WBC RBC 3.61 L Hgb MCV 111.3 H MCH 35.2 H Plt Count Neutrophils # (Manual) Lymphocytes # 0.2 L Monocytes # (Manual) PT ABG pH ABG pCO2 ABG pO2 ABG HCO3 ABG Total CO2 ABG O2 Saturation Sodium 132 L Carbon Dioxide 16 L Creatinine Glucose 72 L POC Glucose (mg/dL) Plasma Lactic Acid Steve Calcium 7.5 L Phosphorus Total Bilirubin 4.1 H AST 37 H Ammonia 171 H Total Protein Albumin 1.9 L Urine Appearance Urine Protein Urine Bilirubin Urine RBC Urine Bacteria Hyaline Casts Urine Mucus 01/03/17 01/03/17 01/03/17 10:35 14:05 17:48 WBC RBC Hgb MCV MCH Plt Count Neutrophils # (Manual) Lymphocytes # Monocytes # (Manual) PT 22.3 H ABG pH ABG pCO2 ABG pO2 ABG HCO3 ABG Total CO2 ABG O2 Saturation Sodium Carbon Dioxide Creatinine Glucose POC Glucose (mg/dL) Plasma Lactic Acid Steve Calcium Phosphorus Total Bilirubin AST Ammonia 247 H Total Protein Albumin Urine Appearance Cloudy H Urine Protein Trace H Urine Bilirubin 1+ H Urine RBC 7 H Urine Bacteria Many H Hyaline Casts 72 H Urine Mucus Rare H 01/03/17 01/03/17 01/04/17 19:38 22:16 01:23 WBC RBC Hgb MCV MCH Plt Count Neutrophils # (Manual) Lymphocytes # Monocytes # (Manual) PT ABG pH ABG pCO2 29 L ABG pO2 130 H ABG HCO3 16 L ABG Total CO2 17 L ABG O2 Saturation 99.0 H Sodium 135 L Carbon Dioxide 16 L Creatinine Glucose POC Glucose (mg/dL) 71 L Plasma Lactic Acid Steve Calcium 7.9 L Phosphorus 4.8 H Total Bilirubin AST Ammonia Total Protein Albumin Urine Appearance Urine Protein Urine Bilirubin Urine RBC Urine Bacteria Hyaline Casts Urine Mucus 01/04/17 01/04/17 01/04/17 04:13 04:13 04:13 WBC 13.0 H RBC Hgb MCV 110.9 H MCH Plt Count Neutrophils # (Manual) 9.0 H Lymphocytes # Monocytes # (Manual) PT 23.4 H ABG pH ABG pCO2 ABG pO2 ABG HCO3 ABG Total CO2 ABG O2 Saturation Sodium 135 L Carbon Dioxide 13 L Creatinine 1.10 H Glucose POC Glucose (mg/dL) Plasma Lactic Acid Steve Calcium 7.5 L Phosphorus 4.9 H Total Bilirubin 4.6 H AST 42 H Ammonia Total Protein 5.9 L Albumin 1.9 L Urine Appearance Urine Protein Urine Bilirubin Urine RBC Urine Bacteria Hyaline Casts Urine Mucus 01/04/17 01/04/17 01/04/17 04:13 04:50 08:01 WBC RBC Hgb MCV MCH Plt Count Neutrophils # (Manual) Lymphocytes # Monocytes # (Manual) PT ABG pH ABG pCO2 25 L ABG pO2 ABG HCO3 14 L ABG Total CO2 15 L ABG O2 Saturation 97.7 H Sodium Carbon Dioxide Creatinine Glucose POC Glucose (mg/dL) Plasma Lactic Acid Steve 8.2 H* 11.2 H* Calcium Phosphorus Total Bilirubin AST Ammonia 295 H Total Protein Albumin Urine Appearance Urine Protein Urine Bilirubin Urine RBC Urine Bacteria Hyaline Casts Urine Mucus 01/04/17 01/04/17 01/04/17 11:50 11:50 11:50 WBC RBC Hgb MCV MCH Plt Count Neutrophils # (Manual) Lymphocytes # Monocytes # (Manual) PT ABG pH 7.31 L ABG pCO2 21 L ABG pO2 144 H ABG HCO3 11 L ABG Total CO2 11 L ABG O2 Saturation 99.0 H Sodium Carbon Dioxide 9 L* Creatinine 1.47 H Glucose 26 L* POC Glucose (mg/dL) Plasma Lactic Acid Steve 12.0 H* Calcium 7.0 L Phosphorus Total Bilirubin 4.0 H AST 75 H Ammonia Total Protein 5.2 L Albumin 2.0 L Urine Appearance Urine Protein Urine Bilirubin Urine RBC Urine Bacteria Hyaline Casts Urine Mucus 01/04/17 01/04/17 01/04/17 11:59 11:59 13:01 WBC 14.7 H RBC 3.25 L Hgb 11.2 L MCV 111.1 H MCH Plt Count Neutrophils # (Manual) 11.6 H Lymphocytes # Monocytes # (Manual) 1.1 H PT 33.2 H ABG pH ABG pCO2 ABG pO2 ABG HCO3 ABG Total CO2 ABG O2 Saturation Sodium Carbon Dioxide Creatinine Glucose POC Glucose (mg/dL) 32 L Plasma Lactic Acid Steve Calcium Phosphorus Total Bilirubin AST Ammonia Total Protein Albumin Urine Appearance Urine Protein Urine Bilirubin Urine RBC Urine Bacteria Hyaline Casts Urine Mucus - Diagnostic Findings Chest x-ray: image reviewed Assessment and Plan Plan: Assessment 1 shock with evidence of multisystem organ failure. The patient has advanced end-stage liver disease/liver cirrhosis and there is most likely an infectious etiology for an underlying shock. The patient presented with hemodynamic collapse with severe lactic acidosis and evidence of multisystem organ failure. Currently the patient is being sustained a fluids. She is on colloids and crystalloids and she is also on vasopressors. Urine output remains essentially that he low and the patient is oliguric. Rule out underlying spottiness bacterial peritonitis. The patient had a diagnostic paracentesis done and the fluid was sent for analysis and the levels still pending for now. Meanwhile the patient is being resuscitated IV fluids, pressors and antibiotics. I started the patient with a combination of Zosyn and vancomycin. She is on norepinephrine infusion running at 30 mics for now in addition to IV fluids. 2 alcoholic liver cirrhosis 3 alcoholism 4 acute respiratory failure secondary to above. Patient is currently intubated on a mechanical ventilator 5 severe lactic acidosis 6 ascites secondary to liver cirrhosis. Status post diagnostic and therapeutic paracentesis 7 coagulopathy related to liver cirrhosis 8 hepatic encephalopathy with significant elevation of the ammonia levels 9 possible aspiration with limited infiltration of the lung bases bilaterally 10 leukocytosis with bandemia secondary to above 11 poor baseline performance and functional status secondary to above-mentioned comorbidities. Plan The patient will be kept intubated on a mechanical ventilator. We'll repeat the blood gases. A triple lumen catheter and arterial line was inserted. Diagnostic paracentesis was done and the fluid will be sent for microbial analysis. Meanwhile, the patient is covered with broad-spectrum antibiotics. Continue fluids in the form of colloids and crystalloids. Continue pressors and the patient is on norepinephrine infusion. No need for sedation as the patient is significantly encephalopathic for now and quite unresponsive. Monitor the blood sugar in avoid significant hypoglycemia. I would recommend continuing D5 Bicarb infusion at a rate of 1 50 mL an hour. Monitor urine output. Transfer this patient to [facility] and the transportation is in the presence of malignant this patient today. Her condition is critical. She is at a increased mortality risk based on presence of multisystem organ failure in addition to significant liver cirrhosis. The case was discussed with the family and they're agreeable for the transfer. The case was discussed with GI and hospitalist.
--- NOTE | 2017-01-04 17:20 | PN ---
DATE OF DICTATION: 01/04/2017 Patient is a 41-year-old white female with history of acute alcoholic hepatitis, for which she was hospitalized at [facility] in early part of October for about 10 days and was discharged home. She was brought into this town by her mother to take of her, and I was seeing her on an outpatient basis. Her last office visit was about 2 weeks ago; her serum transaminases as well as T-bili were gradually declining. She was admitted to the hospital 2 days ago with abdominal pain, abdominal distention, which have been progressively getting worse. On an outpatient basis she was started on Lasix 20 mg daily and Aldactone 50 mg daily. Following admission to the hospital she had an ultrasound of abdomen done that showed evidence of moderate amount of ascites. However, yesterday she started developing hepatic encephalopathy, and oral lactulose was initiated. Apparently during the night she became more obtunded and stuporous and she was transferred to the intensive care unit; around midnight she was intubated because of altered mental status and some respiratory distress. Early this morning she was started on IV Levophed for persistent hypotension. Dr. Vallejo was consulted. Paracentesis was performed by him at the bedside and 4 liters of fluid was aspirated. She was started on broad-spectrum antibiotics for possible sepsis. Patient is intubated at present on the vent. On physical examination, vital signs show blood pressure 95/46, pulse rate 109, at present on 30 mcg of Levophed. HEENT EXAMINATION: Unremarkable. Conjunctivae pink. Sclerae icteric. Oral cavity with no lesions. NECK: No JVD. CHEST: Clear to auscultation. HEART: Regular rate and rhythm. ABDOMEN: Distended, but it was very tympanic. Non-tender. EXTREMITIES: No pedal edema. Bluish discoloration. NEURO: Could not be assessed. LABS DONE FROM THIS MORNING: WBC 14.7, hemoglobin 11.2, platelets 180. PT was 33.2. INR 3.4. ABG: pH 7.31, CO2 21, pCO2 144, bicarb 11. Sodium 138, potassium 3.6, chloride 107. BUN 9, creatinine 1.47. Lactic acid 12. T-bili 4. AST 75, ALT 28. Alkaline phosphatase is normal. Chest x-ray showed bilateral infiltrates. IMPRESSION: 1. Septic shock, probably related to ( ), but other sources cannot be excluded; at present on broad-spectrum antibiotics. Dr. Vallejo is following the patient closely. 2. Altered mental status secondary to acute hepatic encephalopathy precipitated by ongoing sepsis. At present on oral lactulose by NG tube as well as Xifaxan 550 mg twice daily via NG tube. 3. Recent episode of acute alcoholic hepatitis, for which she had hospitalization at [facility] in October of this year, and her bilirubin was gradually improving. 4. Coagulopathy secondary to underlying liver disease as well as ongoing sepsis. 5. Severe lactic acidosis. RECOMMENDATIONS: 1. Continue with supportive and symptomatic care. 2. Continue with broad-spectrum antibiotics. 3. There is no family available at the bedside for discussion about the patient's condition, but we will plan on transferring her to a tertiary care institute for further critical care management. In regards to the hepatic encephalopathy, will continue with oral lactulose as well as Xifaxan via the NG tube. Thank you for this consultation.
[2017-01-05] MEDS ORDERED: VANCOMYCIN 1,250 MG in SODIUM CHLORIDE 0.9% 250 ML IVPB SCH ×2
--- NOTE | 2017-01-05 05:07 | PCN ---
DATE OF PROCEDURE: TRIPLE LUMEN CATHETER PLACEMENT PREOPERATIVE DIAGNOSIS: Shock/hypotension. POSTOPERATIVE DIAGNOSIS: Shock/hypotension. Indication: Hemodynamic monitoring/Intravenous access. A time-out was completed verifying correct patient, procedure, site, positioning, and implant(s) or special equipment if applicable. The patient was placed in a dependent position appropriate for triple lumen catheter placement based on the vein to be cannulated. The patient's right groin was prepped and draped in sterile fashion. 1% Lidocaine was used to anesthetize the surrounding skin area. A triple lumen 9F Cordis catheter was introduced into the right femoral vein using Seldinger technique. The catheter was threaded smoothly over the guide wire and appropriate blood return was obtained. Each lumen of the catheter was evacuated of air and flushed with sterile saline. The catheter was then sutured in place to the skin and a sterile dressing applied. Perfusion to the extremity distal to the point of catheter insertion was checked and found to be adequate. No complications.
--- NOTE | 2017-01-05 05:09 | PCN ---
DATE OF PROCEDURE: ARTERIAL LINE PLACEMENT PREOPERATIVE DIAGNOSIS: Shock/hypotension. POSTOPERATIVE DIAGNOSIS: Shock/hypotension. Indication: Hemodynamic monitoring. A time-out was completed verifying correct patient, procedure, site, positioning, and implant(s) or special equipment if applicable. Néstor's test was performed to ensure adequate perfusion. The patient's right groin was prepped and draped in sterile fashion. 1% Lidocaine was used to anesthetize the area. An 18G Arrow arterial line was introduced into the right femoral artery. The catheter was threaded over the guide wire and the needle was removed with appropriate pulsatile blood return. Blood loss was minimal. The catheter was then sutured in place to the skin and a sterile dressing applied. Perfusion to the extremity distal to the point of catheter insertion was checked and found to be adequate. The patient tolerated the procedure well and there were no complications. No bedside complications.
--- NOTE | 2017-01-05 05:14 | PCN ---
DATE OF PROCEDURE: PROCEDURE: Paracentesis. PREOPERATIVE DIAGNOSIS: Ascites, rule out spontaneous bacterial peritonitis. POSTOPERATIVE DIAGNOSIS: Ascites, rule out spontaneous bacterial peritonitis. This procedure was done at the bedside. The right lateral lower abdominal area was cleaned with ChloraPrep . The skin was anesthetized with 1% lidocaine. Following that, a paracentesis catheter was inserted into the right abdominal cavity and total amount of 2 L of abdominal fluid/ascitic fluid was aspirated. The fluid was sent for microbial analysis and ( ) cell count. No complications to this procedure. The procedure was stopped after draining 2 L of fluid because of the patient's hemodynamic instability.
== END 2017-01-04 16:44 | disposition short-term general hospital (02) | DRG 432 ==
LOC: EC 13:28 → 5MS5E 16:17 → 6ICU 01-03 19:22
PROVIDERS: ADMIT Hospitalist; ATTEND Hospitalist
PROC: 0T9B70Z Drainage of Bladder with Drainage Device, Via Natural or Artificial Opening (ICD-10-PCS; 2017-01-03)
PROC: 0BH17EZ Insertion of Endotracheal Airway into Trachea, Via Natural or Artificial Opening (ICD-10-PCS; principal; 2017-01-04)
PROC: 0W9G3ZX Drainage of Peritoneal Cavity, Percutaneous Approach, Diagnostic (ICD-10-PCS; 2017-01-04)
PROC: 5A1935Z Respiratory Ventilation, Less than 24 Consecutive Hours (ICD-10-PCS; 2017-01-04)
PROC: 0DH67UZ Insertion of Feeding Device into Stomach, Via Natural or Artificial Opening (ICD-10-PCS; 2017-01-04)
PROC: 04HY32Z Insertion of Monitoring Device into Lower Artery, Percutaneous Approach (ICD-10-PCS; 2017-01-04)
PROC: 06HM33Z Insertion of Infusion Device into Right Femoral Vein, Percutaneous Approach (ICD-10-PCS; 2017-01-04)
DX: K70.31 Alcoholic cirrhosis of liver with ascites (principal); A41.9 Sepsis, unspecified organism; R65.21 Severe sepsis with septic shock; J96.01 Acute respiratory failure with hypoxia; R40.20 Unspecified coma; G93.41 Metabolic encephalopathy; J90 Pleural effusion, not elsewhere classified; I95.9 Hypotension, unspecified; K70.41 Alcoholic hepatic failure with coma; Z99.11 Dependence on respirator [ventilator] status; E87.1 Hypo-osmolality and hyponatremia; E44.0 Moderate protein-calorie malnutrition; J98.11 Atelectasis; D68.4 Acquired coagulation factor deficiency; E87.2 Acidosis; F10.20 Alcohol dependence, uncomplicated; K70.11 Alcoholic hepatitis with ascites; R34 Anuria and oliguria; D69.59 Other secondary thrombocytopenia; G40.909 Epilepsy, unspecified, not intractable, without status epilepticus; E16.2 Hypoglycemia, unspecified; F41.9 Anxiety disorder, unspecified; F32.9 Major depressive disorder, single episode, unspecified; R74.0 Nonspecific elevation of levels of transaminase and lactic acid dehydrogenase [LDH]; K59.00 Constipation, unspecified; E88.09 Other disorders of plasma-protein metabolism, not elsewhere classified; D75.89 Other specified diseases of blood and blood-forming organs; R11.10 Vomiting, unspecified; E87.70 Fluid overload, unspecified; Z80.0 Family history of malignant neoplasm of digestive organs; Z87.891 Personal history of nicotine dependence; Z87.828 Personal history of other (healed) physical injury and trauma; Z68.27 Body mass index [BMI] 27.0-27.9, adult; Z79.899 Other long term (current) drug therapy; Z79.1 Long term (current) use of non-steroidal anti-inflammatories (NSAID); Z82.49 Family history of ischemic heart disease and other diseases of the circulatory system
CPT/HCPCS: 31500; 36415; 36600; 71010; 74020; 76705; 80048; 80053; 81001; 82140; 82150; 82805; 83605; 83690; 83735; 84100; 85025; 85610; 85730; 87040; 87070; 87086; 87205; 89050; 94002; 94640; 96360; 96361; 99285